=== PATIENT | female | born 1985 | race Caucasian/White ===

== ENCOUNTER 2017-10-25 18:24 | Emergency (ER) | payer BC, OTHER ==
[~2017-10-25] VITALS: Ht 170.2 cm; Wt 70.3 kg
[~2017-10-25 18:24] MED LIST: KEFLEX500 M1 PO; NORCO 5-325 TA1 EACH PO
[2017-10-25] MEDS ORDERED: HYDROXYCHLOROQ200 M1 PO (19:05)
[2017-10-25] MEDS ORDERED: PREDNISONE 10 M10 MG PO (21:00)
[2018-04-14] MEDS ORDERED: METFORMIN HCL500 MG PO (20:45)
[2018-04-14] MEDS ORDERED: ACYCLOVIR 400400 MG PO (20:46)
[2018-04-14] MEDS ORDERED: NORCO 5-325 TA1 EACH PO (20:58)
== END 2017-10-25 21:19 | disposition home or self-care (01) ==
LOC: ER 18:24
DX: M25.561 Pain in right knee (principal); M32.9 Systemic lupus erythematosus, unspecified

== ENCOUNTER 2018-06-06 15:15 | Emergency (ER) | payer OTHER ==
[~2018-06-06] VITALS: Ht 165.1 cm; Wt 59.0 kg
[~2018-06-06 15:15] MED LIST changes: +ACYCLOVIR 400400 MG PO; +HYDROXYCHLOROQ200 M1 PO; +METFORMIN HCL500 MG PO; +PREDNISONE 10 M10 MG PO
[2018-06-06] MEDS ORDERED: TESSALON PERLE100 MG PO (17:13)
[2018-06-06] MEDS ORDERED: LEVAQUIN 750 M750 MG PO (17:13)
[2018-06-06] MEDS ORDERED: FLAGYL500 MG PO (17:19)
[2018-06-06] MEDS ORDERED: NAPROSYN500 MG PO (17:26)
[2018-06-06] MEDS ORDERED: ACCUNEB SO1.25 MG/1 INH (17:31)
[2018-06-06 17:40] VITALS: BP 138/94
[2018-06-07 15:52] LABS: HSV PCR SOURCE LABIA
[2018-06-08 21:07] LABS: HSV 1 DNA Negative (Negative); HSV 2 DNA Positive (Negative)
[2018-06-09 15:09] LABS: NEISSERIA GONORRHEA-PCR Negative (Negative)
== END 2018-06-06 17:41 | disposition home or self-care (01) ==
LOC: ER 15:15
PROVIDERS: Physician Assistant
DX: J98.01 Acute bronchospasm (principal); N76.0 Acute vaginitis; B96.89 Other specified bacterial agents as the cause of diseases classified elsewhere; R56.9 Unspecified convulsions; M32.9 Systemic lupus erythematosus, unspecified

== ENCOUNTER 2018-08-04 19:20 | Emergency (ER) | payer OTHER ==
[~2018-08-04] VITALS: Ht 165.1 cm; Wt 61.2 kg
[~2018-08-04 19:20] MED LIST changes: +ACCUNEB SO1.25 MG/1 INH; +FLAGYL500 MG PO; +LEVAQUIN 750 M750 MG PO; +NAPROSYN500 MG PO; +TESSALON PERLE100 MG PO
[2018-08-04 19:23] VITALS: BP 138/72
[2018-08-04] MEDS ORDERED: IBUPROFEN 600600 M1 PO (19:39)
[2018-08-04] MEDS ORDERED: ULTRAM 50MG TAB50 MG PO (19:39)
[2018-08-04] MEDS ORDERED: PENICILLIN V P500 MG PO (19:39)
== END 2018-08-04 19:54 | disposition home or self-care (01) ==
LOC: ER 19:20
DX: K02.9 Dental caries, unspecified (principal); K05.10 Chronic gingivitis, plaque induced; F17.210 Nicotine dependence, cigarettes, uncomplicated; M32.9 Systemic lupus erythematosus, unspecified

== ENCOUNTER 2019-11-02 19:21 | Emergency (ER) | payer OTHER ==
[~2019-11-02] VITALS: Ht 165.1 cm; Wt 63.5 kg
[~2019-11-02 19:21] MED LIST changes: +IBUPROFEN 600600 M1 PO; +PENICILLIN V P500 MG PO; +ULTRAM 50MG TAB50 MG PO
[2019-11-02] MEDS ORDERED: KEFLEX500 M1 PO (20:43)
[2019-11-02] MEDS ORDERED: PREDNISONE 10 M10 MG PO (20:43)
[2019-11-02 21:02] VITALS: BP 125/62
== END 2019-11-02 21:02 | disposition home or self-care (01) ==
LOC: ER 19:21
DX: L03.211 Cellulitis of face (principal); M32.9 Systemic lupus erythematosus, unspecified; E11.9 Type 2 diabetes mellitus without complications; F17.200 Nicotine dependence, unspecified, uncomplicated; Z98.890 Other specified postprocedural states

== ENCOUNTER 2020-01-19 06:22 | Emergency (ER) | payer OTHER ==
[~2020-01-19] VITALS: Ht 167.6 cm; Wt 68.0 kg
[2020-01-19 06:27] VITALS: BP 152/80
[2020-01-19] MEDS ORDERED: KEFLEX500 M1 PO (06:45)
[2020-01-19] MEDS ORDERED: PREDNISONE10 MG PO (06:45)
== END 2020-01-19 18:55 | disposition home or self-care (01) ==
LOC: ER 06:22
DX: L03.211 Cellulitis of face (principal); M32.9 Systemic lupus erythematosus, unspecified; E11.9 Type 2 diabetes mellitus without complications; Z87.59 Personal history of other complications of pregnancy, childbirth and the puerperium; Z79.899 Other long term (current) drug therapy